=== PATIENT | female | born 1960 | race Caucasian/White ===

== ENCOUNTER 2020-11-27 13:48 | Inpatient (IN) | payer BC ==
[2020-11-27 14:05] LABS: Glucose,Whole Blood 119 mg/dL (75-99)
--- NOTE | 2020-11-27 14:16 | ED ---
General Adult HPI - General Source: patient, RN notes reviewed Mode of arrival: wheelchair Limitations: no limitations <Keaton Rios - Last Filed: 11/27/20 14:07> <Sloan Payne - Last Filed: 11/27/20 16:00> - General Chief complaint: Neuro Symptoms/Deficit Stated complaint: R Arm Tingling Time Seen by Provider: 11/27/20 13:59 - History of Present Illness Initial comments: Patient is a pleasant 58-year-old female presenting to the emergency department with right-sided paresthesias. Onset was 45 minutes ago. Patient denies any weakness. No history of similar symptoms previously. No speech problem is. No confusion. Patient denies any loss of sensation. Area affected is right hand and a little bit of the right foot. (Keaton Rios) - Related Data Allergies Allergy/AdvReac Type Severity Reaction Status Date / Time No Known Allergies Allergy Verified 11/27/20 13:51 Review of Systems ROS Other: All systems not noted in ROS Statement are negative. Constitutional: Denies: fever Eyes: Denies: eye pain ENT: Denies: ear pain Respiratory: Denies: cough Cardiovascular: Denies: chest pain Endocrine: Denies: fatigue Gastrointestinal: Denies: abdominal pain Genitourinary: Denies: dysuria Musculoskeletal: Denies: back pain Skin: Denies: rash Neurological: Reports: paresthesias. Denies: headache, weakness, numbness, confusion, abnormal gait, vertigo <Keaton Rios - Last Filed: 11/27/20 14:07> ROS Other: All systems not noted in ROS Statement are negative. <Sloan Payne - Last Filed: 11/27/20 16:00> ROS Statement: Those systems with pertinent positive or pertinent negative responses have been documented in the HPI. Past Medical History Past Medical History: No Reported History History of Any Multi-Drug Resistant Organisms: None Reported Past Surgical History: Orthopedic Surgery Past Psychological History: No Psychological Hx Reported Smoking Status: Never smoker Past Alcohol Use History: Rare Past Drug Use History: None Reported <Keaton Rios - Last Filed: 11/27/20 14:07> General Exam Limitations: no limitations General appearance: alert, in no apparent distress Head exam: Present: atraumatic, normocephalic Eye exam: Present: normal appearance, PERRL, EOMI. Absent: nystagmus ENT exam: Present: normal oropharynx Neck exam: Present: normal inspection Respiratory exam: Present: normal lung sounds bilaterally Cardiovascular Exam: Present: regular rate, normal rhythm GI/Abdominal exam: Present: soft. Absent: tenderness Extremities exam: Present: normal inspection Neurological exam: Present: alert, oriented X3, CN II-XII intact. Absent: motor sensory deficit Expanded Neurological exam: Present: protecting the airway Patient oriented to: Present: person, place, time Speech: Present: fluid speech Cranial nerves: EOM's Intact: Normal, Facial Sensation: Normal Sensory exam: Upper Extremity Light Touch: Normal, Lower Extremity Light Touch: Normal Motor strength exam: RUE: 5, LUE: 5, RLE: 5, LLE: 5 Eye Response: (4) open spontaneously Motor Response: (6) obeys commands Verbal Response: (5) oriented Psychiatric exam: Present: normal affect, normal mood Skin exam: Present: normal color <Keaton Rios - Last Filed: 11/27/20 14:07> Course <Sloan Payne - Last Filed: 11/27/20 16:00> Vital Signs 11/27/20 13:51 Temperature 98.1 F Pulse Rate 82 Respiratory 16 Rate Blood Pressure 164/101 O2 Sat by Pulse 100 Oximetry - Reevaluation(s) Reevaluation #1: Patient was signed out to me by Dr. Rios. I followed up on the patient's computed tomography scan which was unremarkable. I reevaluated the patient and she does have some sensory loss in the right face arm and leg. Concern that thi s may be acute stroke. The patient is not TPA candidate because she has non- disabling symptoms. As discussed the case with Dr. Cabrera over the phone who recommended admission for stroke workup. Patient will be admitted for further workup. Dr. Cabrera see the patient in the emergency department. 11/27/20 15:59 (Sloan Payne) EKG Findings - EKG Comments: EKG Findings:: Normal sinus rhythm with rate of 80. VT 174. QRS 70. QT 36. QTc 445. Left axis. Fabian QRS. No acute ST change. <Keaton Rios - Last Filed: 11/27/20 14:07> Medical Decision Making - Lab Data Result diagrams: 11/27/20 14:07 11/27/20 14:07 <Sloan Payne - Last Filed: 11/27/20 16:00> - Lab Data Lab Results 11/27/20 11/27/20 11/27/20 Range/Units 14:03 14:07 14:07 WBC 7.2 (3.8-10.6) k/uL RBC 5.84 H (3.80-5.40) m/uL Hgb 16.3 H (11.4-16.0) gm/dL Hct 49.2 H (34.0-46.0) % MCV 84.3 (80.0-100.0) fL MCH 28.0 (25.0-35.0) pg MCHC 33.2 (31.0-37.0) g/dL RDW 13.5 (11.5-15.5) % Plt Count 200 (150-450) k/uL MPV 6.7 Neutrophils % 70 % Lymphocytes % 22 % Monocytes % 5 % Eosinophils % 2 % Basophils % 1 % Neutrophils # 5.0 (1.3-7.7) k/uL Lymphocytes # 1.6 (1.0-4.8) k/uL Monocytes # 0.4 (0-1.0) k/uL Eosinophils # 0.1 (0-0.7) k/uL Basophils # 0.0 (0-0.2) k/uL PT 9.9 (9.0-12.0) sec INR 0.9 (<1.2) APTT 22.0 (22.0-30.0) sec Sodium (137-145) mmol/L Potassium (3.5-5.1) mmol/L Chloride (98-107) mmol/L Carbon Dioxide (22-30) mmol/L Anion Gap mmol/L BUN (7-17) mg/dL Creatinine (0.52-1.04) mg/dL Est GFR (CKD-EPI)AfAm (>60 ml/min/1.73 sqM) Est GFR (CKD-EPI)NonAf (>60 ml/min/1.73 sqM) Glucose (74-99) mg/dL POC Glucose (mg/dL) 119 H (75-99) mg/dL POC Glu Audiology Director ID [place], Cathleen Calcium (8.4-10.2) mg/dL Total Bilirubin (0.2-1.3) mg/dL AST (14-36) U/L ALT (4-34) U/L Alkaline Phosphatase (38-126) U/L Total Protein (6.3-8.2) g/dL Albumin (3.5-5.0) g/dL 11/27/20 Range/Units 14:07 WBC (3.8-10.6) k/uL RBC (3.80-5.40) m/uL Hgb (11.4-16.0) gm/dL Hct (34.0-46.0) % MCV (80.0-100.0) fL MCH (25.0-35.0) pg MCHC (31.0-37.0) g/dL RDW (11.5-15.5) % Plt Count (150-450) k/uL MPV Neutrophils % % Lymphocytes % % Monocytes % % Eosinophils % % Basophils % % Neutrophils # (1.3-7.7) k/uL Lymphocytes # (1.0-4.8) k/uL Monocytes # (0-1.0) k/uL Eosinophils # (0-0.7) k/uL Basophils # (0-0.2) k/uL PT (9.0-12.0) sec INR (<1.2) APTT (22.0-30.0) sec Sodium 140 (137-145) mmol/L Potassium 4.8 (3.5-5.1) mmol/L Chloride 107 (98-107) mmol/L Carbon Dioxide 22 (22-30) mmol/L Anion Gap 11 mmol/L BUN 18 H (7-17) mg/dL Creatinine 0.80 (0.52-1.04) mg/dL Est GFR (CKD-EPI)AfAm >90 (>60 ml/min/1.73 sqM) Est GFR (CKD-EPI)NonAf 80 (>60 ml/min/1.73 sqM) Glucose 128 H (74-99) mg/dL POC Glucose (mg/dL) (75-99) mg/dL POC Glu Audiology Director ID Calcium 9.4 (8.4-10.2) mg/dL Total Bilirubin 0.6 (0.2-1.3) mg/dL AST 36 (14-36) U/L ALT 24 (4-34) U/L Alkaline Phosphatase 136 H (38-126) U/L Total Protein 7.5 (6.3-8.2) g/dL Albumin 4.5 (3.5-5.0) g/dL Disposition <Keaton Rios - Last Filed: 11/27/20 14:07> <Sloan Payne - Last Filed: 11/27/20 16:00> Clinical Impression: Cerebrovascular accident (CVA) Disposition: ADMITTED IP TO THIS HOSP Condition: Stable Referrals: None,Stated [Primary Care Provider] - 1-2 days
[2020-11-27 14:18] LABS: Basophils % (A) 1 %; Eosinophils # (A) 0.1 k/uL (0-0.7); Eosinophils % (A) 2 %; HCT 49.2 % (34.0-46.0); HGB 16.3 gm/dL (11.4-16.0); Lymphocytes # (A) 1.6 k/uL (1.0-4.8); Lymphocytes % (A) 22 %; MCHC 33.2 g/dL (31.0-37.0); MCV 84.3 fL (80.0-100.0); Mean Platelet Volume 6.7; Monocytes # (A) 0.4 k/uL (0-1.0); Monocytes % (A) 5 %; Neutrophils % (A) 70 %; Platelet Count 200 k/uL (150-450); RBC 5.84 m/uL (3.80-5.40); RDW 13.5 % (11.5-15.5); WBC 7.2 k/uL (3.8-10.6)
[2020-11-27 14:29] LABS: ALT 24 U/L (4-34); AST 36 U/L (14-36); African American GFR (CKD) >90 (>60 ml/min/1.73 sqM); Albumin 4.5 g/dL (3.5-5.0); Alkaline Phosphatase 136 U/L (38-126); Anion Gap 11 mmol/L; Blood Urea Nitrogen 18 mg/dL (7-17); Calcium 9.4 mg/dL (8.4-10.2); Carbon Dioxide 22 mmol/L (22-30); Chloride 107 mmol/L (98-107); Glucose 128 mg/dL (74-99); Non-African American GFR(CKD) 80 (>60 ml/min/1.73 sqM); Potassium 4.8 mmol/L (3.5-5.1); Sodium 140 mmol/L (137-145); Total Bilirubin 0.6 mg/dL (0.2-1.3); Total Protein 7.5 g/dL (6.3-8.2)
[2020-11-27 14:36] LABS: INR 0.9 (<1.2); Prothrombin Time 9.9 sec (9.0-12.0)
--- NOTE | 2020-11-27 15:08 | CT ---
EXAMINATION TYPE: CT brain wo con DATE OF EXAM: 11/27/2020 COMPARISON: None HISTORY: Right hand and foot numbness for [address] DLP: 1094.4 mGycm Automated exposure control for dose reduction was used. Helical imaging through the brain. FINDINGS: Bilateral maxillary sinuses show inflammatory change as does the sphenoid sinus, ethmoid air cells. T here is no hemorrhage or hydrocephalus. Cortical atrophy is mild. Brain density is maintained. IMPRESSION: NO ACUTE ABNORMALITIES EVIDENT.
--- NOTE | 2020-11-27 15:09 | XR ---
EXAMINATION TYPE: XR chest 2V DATE OF EXAM: 11/27/2020 COMPARISON: NONE HISTORY: Altered mental status TECHNIQUE: Frontal and lateral views of the chest are obtained. FINDINGS: There is no focal air space opacity, pleural effusion, or pneumothorax seen. The cardiac silhouette size is within normal limits. The osseous structures are intact. There are overlying leads. Patient is rotated. IMPRESSION: No acute cardiopulmonary process.
[2020-11-27] MEDS ORDERED: ASPIRIN 81 MG PO STA (15:48)
[2020-11-27] MEDS ORDERED: ACETAMINOPHEN TAB 325 MG TAB PO PRN (16:29)
[2020-11-27] MEDS ORDERED: ONDANSETRON 4 MG/2 ML VIAL IVP PRN (16:29)
--- NOTE | 2020-11-27 16:35 | P.HPIM ---
History of Present Illness H&P Date: 11/27/20 Chief Complaint: Right-sided numbness This is a 60-year-old female with no known past medical history that presented to the emergency room with right-sided numbness. Patient said that she was sitting today at 1 and noted some numbness starting in her face going down her right arm and her right lower extremity. Patient initially thought that this would go away if she get up and walk around a little bit that her numbness was persistent and was worse in both right hand and right foot. She then became more concerned and decided to come to the emergency room for further evaluation. The ER, computed tomography scan of the head showed no acute intracranial findings. Her case was discussed with neurology over the phone. She was not a TPA candidate. She'll be admitted to the hospital for further evaluation. Patient was seen and evaluated by me in the ER. She she is still complaining of right-sided paresthesia they did not improve since onset of symptoms. She i nformed me that she did not see her regular physician in over 20 years. She denies any history of hypertension. She is a nonsmoker. She is usually fairly active and is able to ambulate and climb one flight of stairs with no difficulty. No prior history of stroke. Review of Systems Review of system: 14 points review of systems were obtained and were negative except to what were mentioned in the HPI. Past Medical History Past Medical History: No Reported History History of Any Multi-Drug Resistant Organisms: None Reported Past Surgical History: Orthopedic Surgery Past Psychological History: No Psychological Hx Reported Smoking Status: Never smoker Past Alcohol Use History: Rare Past Drug Use History: None Reported Medications and Allergies Home Medications Medication Instructions Recorded Confirmed Type Loratadine [Claritin] 10 mg PO DAILY 11/27/20 11/27/20 History Allergies Allergy/AdvReac Type Severity Reaction Status Date / Time No Known Allergies Allergy Verified 11/27/20 16:02 Physical Exam Vitals: Vital Signs Temp Pulse Resp BP Pulse Ox 11/27/20 16:02 98.7 F 77 18 189/109 97 11/27/20 15:15 75 18 168/101 97 11/27/20 13:51 98.1 F 82 16 164/101 100 Intake and Output 11/27/20 11/27/20 11/27/20 06:59 14:59 22:59 Other: Weight 124.738 kg 126.144 kg General: The patient is awake and alert, in no distress Eye: there is normal conjunctiva bilaterally. Neck: The neck is supple, there is no JVD. Cardiovascular: Normal S1-S2, no S3-S4, no murmurs. Respiratory: Lungs clear to auscultation bilaterally Gastrointestinal: Abdomen is soft, nontender Musculoskeletal: There is no pedal edema. Neurological:. Speech is normal. Skin: Skin is warm and dry Results CBC & Chem 7: 11/27/20 14:07 11/27/20 14:07 Labs: Abnormal Lab Results - Last 24 Hours (Table) 11/27/20 11/27/20 11/27/20 Range/Units 14:03 14:07 14:07 RBC 5.84 H (3.80-5.40) m/uL Hgb 16.3 H (11.4-16.0) gm/dL Hct 49.2 H (34.0-46.0) % BUN 18 H (7-17) mg/dL Glucose 128 H (74-99) mg/dL POC Glucose (mg/dL) 119 H (75-99) mg/dL Alkaline Phosphatase 136 H (38-126) U/L Assessment and Plan Assessment: This is a 60-year-old female with no known past medical history that presented to the emergency room for right-sided body numbness. Patient was evaluated and will be admitted to the hospital for further management of her medical problems noted below 1. Suspected CVA 2. Hypertensive urgency Patient will be admitted on telemetry monitoring. Continue neuro checks per CVA protocol. Computed tomography scan of the brain showed no acute findings. We will obtain CT angiogram of the head and neck and MRI of the brain for further evaluation. Neurology consulted. Patient was started on full dose aspirin in the ER. I would add Lipitor 40 mg daily. Check fasting lipid panel, TSH, and A1c. Obtain echocardiogram with contrast. PT/OT/speech pathology evaluation. Repeat lab work in the morning. Continue gentle IV fluid hydration with normal saline at 75 mL per hour. DVT prophylaxis with subcu Lovenox. Repeat lab work in the morning. Patient was updated about her current clinical condition. All of her questions answered to her satisfaction.
[2020-11-27] MEDS ORDERED: Alteplase PER PHARMACY Stroke 1 EACH MISC MISCELLANE PRN (17:08)
[2020-11-27] MEDS ORDERED: ALTEPLASE 81 MG in EMPTY BAG 1 BAG IV STA (17:10)
[2020-11-27] MEDS ORDERED: ALTEPLASE BOLUS 9 MG in EMPTY SYRINGE 1 SYR IV STA (17:10)
[2020-11-27] MEDS ORDERED: LABETALOL 5 MG/ML VIAL MDV IVP STA (17:14)
[2020-11-27] MEDS: ATORVASTATIN 40 MG TAB PO SCH (17:32)
[2020-11-27] MEDS: SODIUM CHLORIDE 0.9% 1,000 ML IV SCH (17:33)
--- NOTE | 2020-11-27 17:56 | P.CNNES ---
History of Present Illness Consult date: 11/27/20 Requesting physician: Sloan Payne Reason for Consult: Numbness History of Present Illness: Patient is a 60-year-old right-handed female came to the hospital today at 1:48 PM for acute onset of numbness of the right hand, foot and the right cheek. Patient was having lunch with her family, when she complained of numbness of her right hand, right foot and right side of her cheek at 1 PM. Patient was noticing some difficulty with walking and balance. She felt her right foot was numb affecting her balance. Denies any headache problem with the vision, slurred speech or facial droop. As the symptoms persisted, they decided to come to the ER. I saw the patient when she returns back from CTA. Vital signs on arrival blood pressure 164/101, pulse rate 82 temperature 98.1. Most recent blood pressure 189/109. Blood test shows normal WBC, hemoglobin 16.3, platelets 200. PT/PTT normal, Chem-7 normal. Hepatic panel normal. Computed tomography scan of the head is normal. Mild cortical atrophy. EKG shows normal sinus rhythm. Chest x-ray showed no acute cardiopulmonary process. Per ED physician report, her NIH stroke scale was 1, has nondisabling deficit, therefore not a candidate for TPA. Patient has not seen doctor for about 20 years. She has suffered from wrist fracture about 1-1/2 years ago and was noted to have elevated BP, but patient elected not to be treated thereafter. She is not on any medications except loratadine. Does not take any antiplatelet medication. No history of trauma, head or neck injury. Both parents are in 90s, alive and well. No family history of strokes. Never smoked, drinks alcohol very occasionally. I came and saw the patient in the ER. Patient had just returned back from CTA. Patient was complaining of numbness of her right hand, forearm and the right shoulder, right side of the cheek and right foot and distal lower extremity. Patient was noted to have increasing deficits, with current NIH stroke scale of 4, as mentioned below. Discussed with patient and her , who is also a physician about possibility of TPA. As patient is still within the window for TPA, patient and her elected to go for TPA. Risks and benefits were informed including 6% risk of hemorrhage from TPA, which could be fatal, versus 30% better neurological recovery from TPA in 3 to 6 months, as compared to non- TPA recipient. Review of Systems As mentioned above in detail. Denies any chest pain, shortness of breath, wheezing or cough. Denies any problem with the vision. No abdominal pain and nausea vomiting diarrhea. No fever or chills. No trauma. All other review of systems noncontributory.. Past Medical History Past Medical History: No Reported History History of Any Multi-Drug Resistant Organisms: None Reported Past Surgical History: Orthopedic Surgery Past Psychological History: No Psychological Hx Reported Smoking Status: Never smoker Past Alcohol Use History: Rare Past Drug Use History: None Reported Medications and Allergies Home Medications Medication Instructions Recorded Confirmed Type Loratadine [Claritin] 10 mg PO DAILY 11/27/20 11/27/20 History Allergies Allergy/AdvReac Type Severity Reaction Status Date / Time No Known Allergies Allergy Verified 11/27/20 16:02 Physical Examination - Vital Signs Vital Signs: Vital Signs Temp Pulse Resp BP Pulse Ox 11/27/20 16:02 98.7 F 77 18 189/109 97 11/27/20 15:15 75 18 168/101 97 11/27/20 13:51 98.1 F 82 16 164/101 100 Intake and Output 11/27/20 11/27/20 11/27/20 06:59 14:59 22:59 Other: Weight 124.738 kg 126.144 kg Patient is a late middle aged female, in no acute distress. Patient is alert awake oriented to time place and person. Speech and language functions are normal. Attention, concentration and fund of knowledge is adequate. On cranial examination, pupils are round and reacting to light, visual raymond are full on confrontation, extraocular muscles are intact with no nystagmus. Face appears to have mild flattening of the nasolabial fold, although appears symmetric on active testing. Her tongue protrudes to the midline. Palatal elevation and sensation normal, hearing and shoulder shrug normal, facial sensation are perceived on both sides, but patient states appears slightly different on the face on the right side. On muscle strength testing, there is right pronator drift and the strength is normal in arms and legs distally and proximally. Deep tendon reflexes are 1+ in the right upper limb, 2+ in the left upper limb. Knees are 2+, ankles 2 bilaterally. Patient has clear Babinski on the right. Flat versus withdrawal on the left. Sensory to touch is equal with no neglect. Patient does feel different (dull) sensation on the right arm and leg, as compared to the left. Cerebellar function showed moderate ataxia for [id number] testing on the right, normal on the left. [id number] testing was slightly ataxic on the right, whereas normal on the left. Tone and bulk of muscles normal. Gait normal, although patient feels off balance because of right leg numbness. On general examination, there is no carotid bruit or murmur, S1-S2 audible. Abdomen is soft nontender. Chest is clear. Peripheral pulses are present. No edema. Results - Laboratory Findings CBC and BMP: 11/27/20 14:07 11/27/20 14:07 Abnormal Lab Findings: Abnormal Labs 11/27/20 11/27/20 11/27/20 14:03 14:07 14:07 RBC 5.84 H Hgb 16.3 H Hct 49.2 H BUN 18 H Glucose 128 H POC Glucose (mg/dL) 119 H Alkaline Phosphatase 136 H Assessment and Plan Assessment: * Probable acute ischemic stroke manifesting with mild right hemiparesis/sensory deficit. Current NIH stroke scale is 4. Mechanism likely lacunar from small vessel disease. Rule out embolic source. * Hypertension, not treated for at least 1+ year. * Obesity Plan: * Patient has measurable neurological deficits at this time. Although symptoms started at 1 PM, but her NIH stroke scale was still 1 (subjective numbness), until she returned back from CTA when symptoms have progressed. Her current NIH stroke scale is 4. Patient apparently is still within the therapeutic window for TPA. After discussing risks and benefits with patient and her , both of them elected to proceed with TPA. * Post-TPA orders will be followed. * CTA of head and neck report pending. * MRI of the brain evaluate for acute stroke. * Fasting lipid panel, hemoglobin A1c * 2-D echo with bubble study rule out PFO. * Admit to ICU. * Neuro checks as per post-TPA protocol. * Blood pressure management as per post-TPA protocol. Time with Patient: Greater than 30
[2020-11-27] MEDS: SODIUM CHLORIDE 0.9% 50 ML MINI-BAG IV ONE ×2 (17:57→18:15)
--- NOTE | 2020-11-27 17:57 | ED ---
Medical Decision Making - Medical Decision Making This 60-year-old female who presents emergency department for numbness to the right side of her body. Patient was initially evaluated by Dr. Rios who did not note any neurologic findings on examination. When I evaluated the patient around 3:45 PM she did note having some decreased sensation to the right when compared to the left however I did not note any other neurologic findings on my examination. She is able to hold both arms up. She was able to hold both legs. She was able to close her eyes and I did not note any pronator drift and with her eyes closed she was able to take her finger and touch her nose with both hands at the time. The patient was to be admitted for suspected stroke workup. She is not TPA candidate at the time because her NIH was low when she had non- disabling symptoms on examination. After the patient returned from a CTA she was evaluated by neurology who noted that the patient had developed some significant ataxia. The patient was still within the TPA window and this was discussed with the family. They're agreeable to receiving TPA and the patient received TPA. I spoke with Dr. Schumacher are because the patient will be going to ICU and he was updated on the plan of care. Dr. Rivera was also in the ER and I discussed the patient's plan of care with him as well. Patient family or us also updated as well. - Lab Data Result diagrams: 11/27/20 14:07 11/27/20 14:07 Lab Results 11/27/20 11/27/20 11/27/20 Range/Units 14:03 14:07 14:07 WBC 7.2 (3.8-10.6) k/uL RBC 5.84 H (3.80-5.40) m/uL Hgb 16.3 H (11.4-16.0) gm/dL Hct 49.2 H (34.0-46.0) % MCV 84.3 (80.0-100.0) fL MCH 28.0 (25.0-35.0) pg MCHC 33.2 (31.0-37.0) g/dL RDW 13.5 (11.5-15.5) % Plt Count 200 (150-450) k/uL MPV 6.7 Neutrophils % 70 % Lymphocytes % 22 % Monocytes % 5 % Eosinophils % 2 % Basophils % 1 % Neutrophils # 5.0 (1.3-7.7) k/uL Lymphocytes # 1.6 (1.0-4.8) k/uL Monocytes # 0.4 (0-1.0) k/uL Eosinophils # 0.1 (0-0.7) k/uL Basophils # 0.0 (0-0.2) k/uL PT 9.9 (9.0-12.0) sec INR 0.9 (<1.2) APTT 22.0 (22.0-30.0) sec Sodium (137-145) mmol/L Potassium (3.5-5.1) mmol/L Chloride (98-107) mmol/L Carbon Dioxide (22-30) mmol/L Anion Gap mmol/L BUN (7-17) mg/dL Creatinine (0.52-1.04) mg/dL Est GFR (CKD-EPI)AfAm (>60 ml/min/1.73 sqM) Est GFR (CKD-EPI)NonAf (>60 ml/min/1.73 sqM) Glucose (74-99) mg/dL POC Glucose (mg/dL) 119 H (75-99) mg/dL POC Glu Mri Ct Tech ID [place], Cathleen Calcium (8.4-10.2) mg/dL Total Bilirubin (0.2-1.3) mg/dL AST (14-36) U/L ALT (4-34) U/L Alkaline Phosphatase (38-126) U/L Total Protein (6.3-8.2) g/dL Albumin (3.5-5.0) g/dL TSH (0.465-4.680) mIU/L 11/27/20 11/27/20 Range/Units 14:07 14:07 WBC (3.8-10.6) k/uL RBC (3.80-5.40) m/uL Hgb (11.4-16.0) gm/dL Hct (34.0-46.0) % MCV (80.0-100.0) fL MCH (25.0-35.0) pg MCHC (31.0-37.0) g/dL RDW (11.5-15.5) % Plt Count (150-450) k/uL MPV Neutrophils % % Lymphocytes % % Monocytes % % Eosinophils % % Basophils % % Neutrophils # (1.3-7.7) k/uL Lymphocytes # (1.0-4.8) k/uL Monocytes # (0-1.0) k/uL Eosinophils # (0-0.7) k/uL Basophils # (0-0.2) k/uL PT (9.0-12.0) sec INR (<1.2) APTT (22.0-30.0) sec Sodium 140 (137-145) mmol/L Potassium 4.8 (3.5-5.1) mmol/L Chloride 107 (98-107) mmol/L Carbon Dioxide 22 (22-30) mmol/L Anion Gap 11 mmol/L BUN 18 H (7-17) mg/dL Creatinine 0.80 (0.52-1.04) mg/dL Est GFR (CKD-EPI)AfAm >90 (>60 ml/min/1.73 sqM) Est GFR (CKD-EPI)NonAf 80 (>60 ml/min/1.73 sqM) Glucose 128 H (74-99) mg/dL POC Glucose (mg/dL) (75-99) mg/dL POC Glu Mri Ct Tech ID Calcium 9.4 (8.4-10.2) mg/dL Total Bilirubin 0.6 (0.2-1.3) mg/dL AST 36 (14-36) U/L ALT 24 (4-34) U/L Alkaline Phosphatase 136 H (38-126) U/L Total Protein 7.5 (6.3-8.2) g/dL Albumin 4.5 (3.5-5.0) g/dL TSH 1.830 (0.465-4.680) mIU/L Disposition Clinical Impression: Cerebrovascular accident (CVA) Disposition: ADMITTED IP TO THIS HOSP Condition: Stable
[2020-11-27 18:07] LABS: Glucose,Whole Blood 140 mg/dL (75-99)
[2020-11-27] MEDS ORDERED: SODIUM CHLORIDE 0.9% 50 ML MINI-BAG IV ONE (18:11)
[2020-11-27] MEDS: CLEVIDIPINE BUTYRATE 25 MG in EMPTY BAG 1 BAG IV SCH (19:00)
[2020-11-27 19:01] LABS: HCT 47.5 % (34.0-46.0); HGB 15.4 gm/dL (11.4-16.0); MCH 27.5 pg (25.0-35.0); MCHC 32.3 g/dL (31.0-37.0); MCV 85.2 fL (80.0-100.0); Mean Platelet Volume 6.8; Platelet Count 206 k/uL (150-450); RBC 5.58 m/uL (3.80-5.40); RDW 14.1 % (11.5-15.5); WBC 10.5 k/uL (3.8-10.6)
[2020-11-27] MEDS: OXYMETAZOLINE 0.05% NASL SPRAY 1 SPRAY BOTTLE NASAL SCH (19:18)
--- NOTE | 2020-11-27 21:41 | PCN ---
PROCEDURE NOTE PREOPERATIVE DIAGNOSIS: Right anterior epistaxis. POSTOP DIAGNOSIS: Right anterior epistaxis. PROCEDURE PERFORMED: Silver nitrate cauterization, right anterior septum. ANESTHESIA: Topical lidocaine. BLOOD LOSS: Minimal. Less than 2 mL. COMPLICATIONS: None. PROCEDURE DETAILS: The patient in her hospital bed. Silver nitrate cauterization used to control the bleeding on the right anterior septum and this was applied twice and controlled the bleeding. The patient tolerated this well with no complications. MMODL / IJN: [id number] /
--- NOTE | 2020-11-27 21:41 | CONS ---
CONSULTATION REASON FOR CONSULTATION: Epistaxis. HISTORY OF PRESENT ILLNESS: This is a 60 white female who presented to the ER this afternoon with acute onset of right-sided numbness. She had no weakness, however. This affects her right hand and right foot as well as a little bit of the right side of the face. She had a negative CT, but there was concern of a CVA and therefore tPA was administered. Shortly after the tPA was administered, the patient started having epistaxis. It was uncertain as to which side, but it was felt more so on the right than the left. She has not had epistaxis previously and noted has no chronic nasal symptoms. She had epistaxis, which has improved with Afrin, however, still has some mild epistaxis, especially on the right. Note that the CT of the brain did show some chronic sinus inflammation. PAST MEDICAL HISTORY: Negative for heart, lung, liver, kidney disease, diabetes mellitus, seizure disorder, bleeding. SURGICAL HISTORY: Post orthopedic surgery. SOCIAL HISTORY: Does not smoke. Drinks alcohol rarely. MEDICATIONS: At home, Claritin. ALLERGIES: No known drug allergies. REVIEW OF SYSTEMS: 14-point review of systems obtained, negative except what was mentioned already. PHYSICAL EXAM: Vital signs shows the patient is afebrile. Earlier this afternoon her blood pressure was elevated, especially diastolic over 100. GENERAL: Well-developed adult white female in no acute distress. She is conversant, awake, alert, and oriented x3. HEENT: Head normocephalic, atraumatic. Ears bilaterally clear. Canals clear. TMs unremarkable mobile. Nose shows cotton in the right nasal cavity with a nasal clamp in place. There is no bleeding through this. This was removed. Prominent vessel left anterior septum, however, no acute bleeding. On the right, there is a prominent vessel and superiorly there was some active bleeding. This was controlled with silver nitrate. The septum has minimal spurring. No bleeding points otherwise. Oropharynx shows no blood. No posterior bleeding. No lesions. NECK: Supple without adenopathy or tenderness. ASSESSMENT: Right anterior epistaxis, acute, currently controlled. PLAN: No nose blowing for 1 week with nasal saline and moisturization. If she has breakthrough bleeding, then I have left a verbal order to use Afrin and the nose nasal clamp and I reviewed this with the patient's nurse. At this point, the patient is doing well. She will follow up as needed as an outpatient. She does live out of town and can follow up with any recurrent epistaxis back in her hometown also. If there are questions or concerns, please free to contact me. MMODL / IJN: [id number] /
--- NOTE | 2020-11-27 22:33 | CT ---
EXAMINATION TYPE: CT angio head neck DATE OF EXAM: 11/27/2020 COMPARISON: None HISTORY: Weakness CT DLP: mGycm Automated exposure control for dose reduction was used. CONTRAST: Performed , patient injected with mL of . The contrast was Isovue 65 mL. There are 3-D post processed images. Images obtained from the aortic arch to the vertex of the brain with IV contrast. There is normal branching pattern of the great vessels on the aortic arch. There is arterial flow in both subclavian arteries. There is arterial flow in the common internal and external carotid arteries bilaterally. There is arterial flow in both vertebral arteries. There is no evidence of carotid or v ertebral artery aneurysm or dissection. There is wide patency of the carotid artery bifurcations. The re is arterial flow in the vertebrobasilar artery system. There is extensive mucosal thickening in the sphenoid ethmoid frontal and maxillary sinuses. There is arterial flow in the anterior middle and posterior cerebral arteries. I see no mass effect. There is no sign of intracranial aneurysm or neovascularity. There is normal enhancement of the venou s sinuses. There is diminutive A2 segment of the left anterior cerebral artery. I do not see any foca l stenosis. IMPRESSION: Negative CT angiogram of the neck. There is diminutive left anterior cerebral artery but no focal stenosis. Clinical significance is not clear. This could be developmental. Otherwise negative CT angiogram of the brain.
[2020-11-28 01:35] LABS: Hemoglobin A1C 6.2 % (4.0-6.0)
[2020-11-28 03:53] LABS: Basophils # (A) 0.1 k/uL (0-0.2); Basophils % (A) 1 %; Eosinophils # (A) 0.1 k/uL (0-0.7); Eosinophils % (A) 1 %; HCT 46.3 % (34.0-46.0); HGB 14.8 gm/dL (11.4-16.0); Lymphocytes # (A) 1.5 k/uL (1.0-4.8); Lymphocytes % (A) 20 %; MCH 27.8 pg (25.0-35.0); MCV 86.9 fL (80.0-100.0); Mean Platelet Volume 6.9; Monocytes # (A) 0.3 k/uL (0-1.0); Monocytes % (A) 5 %; Neutrophils # (A) 5.3 k/uL (1.3-7.7); Neutrophils % (A) 71 %; Platelet Count 176 k/uL (150-450); RBC 5.33 m/uL (3.80-5.40); WBC 7.5 k/uL (3.8-10.6)
[2020-11-28 04:16] LABS: African American GFR (CKD) >90 (>60 ml/min/1.73 sqM); Anion Gap 10 mmol/L; Blood Urea Nitrogen 19 mg/dL (7-17); Calcium 8.9 mg/dL (8.4-10.2); Carbon Dioxide 24 mmol/L (22-30); Chloride 106 mmol/L (98-107); Glucose 112 mg/dL (74-99); Non-African American GFR(CKD) >90 (>60 ml/min/1.73 sqM); Potassium 4.7 mmol/L (3.5-5.1); Sodium 140 mmol/L (137-145)
[2020-11-28] MEDS: OXYMETAZOLINE 0.05% NASL SPRAY 1 SPRAY BOTTLE NASAL SCH ×2 (04:53→10:02)
[2020-11-28] MEDS: CLEVIDIPINE BUTYRATE 25 MG in EMPTY BAG 1 BAG IV SCH (08:55)
[2020-11-28] MEDS ORDERED: ASPIRIN 325 MG TAB PO SCH (09:00)
[2020-11-28] MEDS ORDERED: ENOXAPARIN 40 MG/0.4 ML SYRINGE SQ SCH (09:00)
--- NOTE | 2020-11-28 09:13 | P.PN ---
Subjective Progress Note Date: 11/28/20 After patient was seen yesterday, TPA was initiated. Right after the one hour infusion of alteplase completed, patient developed epistaxis. It was profuse bleeding. ENT was consulted, who performed a nasal camp and also cauterized a bleeding vessel in the right nostril. Finally epistaxis resolved. She also developed mild vaginal bleed. Her hemoglobin remained stable. Vitals remained stable. Her blood pressure was controlled with Cleviprex. This was finally discontinued once the epistaxis resolved. Her most recent vitals are blood pressure 179/90, pulse rate 71. Patient continues to have subjective numbness on the right side. Patient believes that she is less sensitive on the right as compared to yesterday. Denies any slurred speech. Still with ataxia on the right. No other symptoms. Patient also has received an aspirin 324 mg in the ER prior to initiation of TPA. Uncertain if epistaxis was from TPA or aspirin. Objective - Vital Signs Vital signs: Vital Signs Temp 98.3 F 11/28/20 04:00 Pulse 71 11/28/20 07:00 Resp 14 11/28/20 07:00 BP 179/90 11/28/20 07:00 Pulse Ox 97 11/28/20 07:00 Intake & Output 11/27/20 11/28/20 11/28/20 18:59 06:59 18:59 Intake Total 125 849.134 78.167 Output Total 400 500 Balance 125 449.134 -421.833 Weight 128.2 kg 125.8 kg Intake: IV 125 825 75 0.9 Sodium Chloride 50 Sodium Chloride 0.9% 1, 75 825 75 000 ml @ 75 mls/hr IV . [id number] TONNY Rx#:[id number] Intake, IV Titration 24.134 3.167 Amount Clevidipine Butyrate 25 24.134 3.167 mg In Empty Bag 1 bag @ 1 MG/HR 2 mls/hr IV .Q24H TONNY Rx#:[id number] Output: Urine 400 500 Other: Voiding Method Bedpan Bedpan # Voids 0 1 - Exam Patient is a late middle aged female, in no acute distress. Patient is alert awake oriented to time place and person. Speech and language functions are normal. Attention, concentration and fund of knowledge is adequate. On cranial examination, pupils are round and reacting to light, visual raymond are full on confrontation, extraocular muscles are intact with no nystagmus. Face is symmetric, tongue protrudes to the midline. Palatal elevation and sensation normal, hearing and shoulder shrug normal, facial sensation normal. Shoulder shrug normal. On muscle strength testing, there is right pronator drift, improved as compared to yesterday and the strength is normal in arms and legs distally and prox imally. Deep tendon reflexes are 1+ to 2+ and plantar is up on the right. Sensory to touch and temperature is equal with no neglect. She only notices numbness and she scratches her right hand with her left index finger nail. Cerebellar function showed moderate ataxia for vezlmq-eo-jmxq testing only on the right. No dysdiadochokinesia. No ataxia for ncra-xy-jtgu testing. Tone and bulk of muscles normal. Gait not checked. On general examination, there is no carotid bruit or murmur, S1-S2 audible. Abdomen is soft nontender. Chest is clear. Peripheral pulses are present. No edema. - Labs CBC & Chem 7: 11/28/20 03:02 11/28/20 03:02 Labs: Abnormal Lab Results - Last 24 Hours (Table) 11/27/20 11/27/20 11/27/20 Range/Units 14:03 14:07 14:07 RBC 5.84 H (3.80-5.40) m/uL Hgb 16.3 H (11.4-16.0) gm/dL Hct 49.2 H (34.0-46.0) % BUN 18 H (7-17) mg/dL Glucose 128 H (74-99) mg/dL POC Glucose (mg/dL) 119 H (75-99) mg/dL Hemoglobin A1c (4.0-6.0) % Alkaline Phosphatase 136 H (38-126) U/L 11/27/20 11/27/20 11/27/20 Range/Units 14:07 18:04 18:52 RBC 5.58 H (3.80-5.40) m/uL Hgb (11.4-16.0) gm/dL Hct 47.5 H (34.0-46.0) % BUN (7-17) mg/dL Glucose (74-99) mg/dL POC Glucose (mg/dL) 140 H (75-99) mg/dL Hemoglobin A1c 6.2 H (4.0-6.0) % Alkaline Phosphatase (38-126) U/L 11/28/20 11/28/20 Range/Units 03:02 03:02 RBC (3.80-5.40) m/uL Hgb (11.4-16.0) gm/dL Hct 46.3 H (34.0-46.0) % BUN 19 H (7-17) mg/dL Glucose 112 H (74-99) mg/dL POC Glucose (mg/dL) (75-99) mg/dL Hemoglobin A1c (4.0-6.0) % Alkaline Phosphatase (38-126) U/L Assessment and Plan Assessment: * Probable acute ischemic stroke manifesting with mild right hemiparesis/sensory deficit. Current NIH stroke scale is 2. Mechanism likely lacunar from small vessel disease. Rule out embolic source. * Hypertension, not treated for at least 1+ year. * Obesity * Status post epistaxis post TPA, now resolved. * Mild vaginal bleed, post-TPA, resolved Plan: * Patient has received TPA. Her neurological examination appears to have slightly improved, but still has focal deficits. Await MRI. * Epistaxis has resolved. Appreciate ENT input. * CTA of head revealed diminutive left anterior cerebral artery but no focal stenosis. Clinical significance is not clear. This could be developmental. CTA of the neck is normal. * MRI of the brain pending, evaluate for acute stroke. * Fasting lipid panel pending, * Hemoglobin A1c 6.2. Patient will need dietary modification for prediabetes. * 2-D echo with bubble study rule out PFO. Pending * Neuro checks every 2 hours for 24 hours post-TPA. * Blood pressure management as per post-TPA protocol. * Patient on SCDs for DVT prophylaxis. Patient was reevaluated at 11:15 AM. Continues to have significant ataxia for hchwyi-ps-yerg, minimally for ytlt-lg-ahmi on the right. Still with significant right pronator drift (worse as compared to earlier this morning). Blood pressure was 145/81. We will stop Cleviprex Maintain blood pressure higher, only treat if greater than 185/110. 2-D echo showed normal left-ventricular size. Moderate concentric LVH. EF is between 60-65%. Agitated saline documented no interatrial shunt. No PFO. Lipid panel with cholesterol 174, LDL 105, HDL 39, triglycerides 150. Agree with Lipitor 40 mg daily. PT, OT and speech therapy. 3:15 PM MRI report came back. Confirmed evidence of lacunar stroke involving the left thalamus. Discussed MRI results with the patient and her . Reviewed films. According to nurse report, patient did have some mild fresh blood noted when she went for MRI. I would recommend Plavix 75 mg and aspirin 81 mg if cleared from epistaxis standpoint. If single agent is recommended by ENT, then would consider aspirin 325 mg or 81 mg. Time with Patient: Greater than 30
--- NOTE | 2020-11-28 09:30 | ECHOF ---
Referral Reason:CVA MEASUREMENTS -------- HEIGHT: 167.6 cm WEIGHT: 125.7 kg BP: 178/89 IVSd: 1.4 cm (0.6 - 1.1) LVIDd: 4.7 cm (3.9 - 5.3) LVPWd: 1.3 cm (0.6 - 1.1) EDV(Teich): 101 ml IVSs: 1.7 cm LVIDs: 3.2 cm LVPWs: 2.1 cm %IVS Thck: 18 % ESV(Teich): 41 ml EF(Teich): 59 % %FS: 31 % SV(Teich): 60 ml LA Diam: 3.5 cm (2.7 - 3.8) RVIDd: 2.7 cm (< 3.3) Ao Diam: 3.0 cm (2.0 - 3.7) AV Cusp: 1.8 cm (1.5 - 2.6) EPSS: 0.7 cm MV E Pietro: 0.98 m/s MV DecT: 179 ms MV Dec Wasco: 5.4 m/s MV A Pietro: 1.05 m/s MV E/A Ratio: 0.93 MV PHT: 52 ms AV Vmax: 1.69 m/s AV maxP.42 mmHg MV EF SLOPE: 47.02 mm/s (70 - 150) MV EXCURSION: 13.99 mm (> 18.000) FINDINGS -------- Sinus rhythm. This was a technically adequate study. The left ventricular size is normal. There is moderate concentric left ventricular hypertrophy. O verall left ventricular systolic function is normal with, an EF between 60 - 65 %. The right ventricle is normal in size. The left atrium is normal in size. The right atrium is normal in size. Contrast study was performed with 2 iv injections of 8 ccs of agitated normal saline, at rest, and wi th cough. Saline bubble study negative. No PFO NOTED The aortic valve is trileaflet, and appears structurally normal. No aortic stenosis or regurgitation. The mitral valve is normal. The tricuspid valve appears structurally normal. Unable to estimate RVSP due to inadequate TR jet s pectral doppler profile. The pulmonic valve was not well visualized. The aortic root size is normal. Normal inferior vena cava with normal inspiratory collapse consistent with estimated right atrial pre ssure of 5 mmHg. Echo free space indicative of a pericardial fat pad. There is no pericardial effusion. CONCLUSIONS -------- 1. The left ventricular size is normal. 2. There is moderate concentric left ventricular hypertrophy. 3. Overall left ventricular systolic function is normal with, an EF between 60 - 65 %. 4. Contrast study was performed with 2 iv injections of 8 ccs of agitated normal saline, at rest, and with cough. 5. Saline bubble study negative. No PFO NOTED 6. The aortic valve is trileaflet, and appears structurally normal. No aortic stenosis or regurgitati on. 7. Echo free space indicative of a pericardial fat pad. 8. There is no pericardial effusion. INTERLOCKING P[employer]EMENT INSTALLER: Jennifer Blackman RDCS
[2020-11-28] MEDS: SODIUM CHLORIDE 0.9% 1,000 ML IV SCH ×2 (10:01→21:26)
[2020-11-28] MEDS: amLODIPine 5 MG TAB PO SCH ×2 (10:02→21:25)
[2020-11-28] MEDS: ATORVASTATIN 40 MG TAB PO SCH (10:02)
[2020-11-28 12:52] LABS: Chol/HDL Ratio 4.46; Cholesterol 174 mg/dL (0-200)
--- NOTE | 2020-11-28 13:11 | P.CNPUL ---
History of Present Illness Consult date: 11/28/20 Requesting physician: Bimal Timmons Reason for consult: other (Acute CVA) Chief complaint: Right-sided numbness. History of present illness: This is a 60-year-old female, no significant past medical history. Patient lives in [place]. Has not been seen by any physician for over a decade. Yesterday around 1:00 PM, patient developed sudden onset of numbness in the right hand foot and the right cheek. She was eating lunch with her family, patient also noticed difficulty with walking and balance. Right foot was felt to be numb. Patient has no headache, no blurred vision, no slurred speech, no facial droop, patient was brought into the ER, blood pressure was noted to be elevated at 189/109. CT of the brain was normal. EKG was normal. Chest x-ray was also normal. Most of her labs were unremarkable. Patient was seen by neurology on consultation shortly after her presentation, and the patient was in the ER at the time. Upon examination by neurology, the patient was noted to have increasing deficit with NIH stroke scale of 4. Hence he recommended TPA. Patient received TPA since she was in the window for thrombolytics. And the patient was transferred shortly after to the ICU. Upon arrival to the ICU, patient developed epistaxis requiring ENT consultation and cauterization. Patient also developed minimal vaginal bleeding. Her symptoms are basically about the same, continues to have numbness on the right side, MRI is pending today. Seen by neurology again today, still documenting numbness on the right side, and some ataxia on the right side. But no other findings. Patient was felt to have acute ischemic stroke manifesting with mild right hemiparesis and sensory deficit. Her NIH stroke scale is 2 today. 2-D echo with bubble study is pending. CT angiography of head and neck is negative. Labs today including CBC, basic metabolic profile, are normal. Review of Systems Constitutional: Negative. HEENT: Negative. Except for epistaxis shortly after receiving TPA. Pulmonary: Negative. Cardiac: Negative. GI: Negative. Genitourinary: Negative except for vaginal bleeding post TPA. Musculoskeletal: As noted in HPI. Neurologic: As noted in HPI. Psychiatric: Negative. Hematologic: Negative and as noted in HPI. Skin: Negative. Endocrine: Negative. Past Medical History Past Medical History: No Reported History History of Any Multi-Drug Resistant Organisms: None Reported Past Surgical History: Orthopedic Surgery Additional Past Surgical History / Comment(s): left wrist sugery. D&C Past Anesthesia/Blood Transfusion Reactions: No Reported Reaction Past Psychological History: No Psychological Hx Reported Smoking Status: Never smoker Past Alcohol Use History: Rare Past Drug Use History: None Reported - Past Family History Mother Family Medical History: Cancer Additional Family Medical History / Comment(s): A & W; breast cancer Father Additional Family Medical History / Comment(s): A & W; pacemaker, melanoma Medications and Allergies Home Medications Medication Instructions Recorded Confirmed Type Loratadine [Claritin] 10 mg PO DAILY 11/27/20 11/27/20 History Allergies Allergy/AdvReac Type Severity Reaction Status Date / Time No Known Allergies Allergy Verified 11/27/20 16:02 Physical Exam Vitals: Vital Signs Temp Pulse Resp BP Pulse Ox 11/28/20 12:00 70 13 148/73 97 11/28/20 11:30 70 16 156/79 96 11/28/20 11:15 77 17 145/81 97 11/28/20 11:00 67 14 158/83 95 11/28/20 10:45 71 14 149/80 96 11/28/20 10:30 71 15 166/81 96 11/28/20 10:15 76 19 161/77 97 11/28/20 10:00 76 25 H 131/79 97 11/28/20 09:45 76 15 160/88 96 11/28/20 09:30 77 16 161/86 97 11/28/20 09:15 73 20 166/85 98 11/28/20 09:00 68 15 158/89 98 11/28/20 08:45 71 16 168/77 11/28/20 08:30 71 16 159/87 11/28/20 08:15 98.3 F 67 13 185/90 96 11/28/20 08:00 74 16 185/90 96 11/28/20 07:00 71 14 179/90 97 11/28/20 06:30 68 13 178/89 96 11/28/20 06:00 70 14 95 11/28/20 05:30 62 13 93 L 11/28/20 05:00 62 14 153/85 93 L 11/28/20 04:30 62 15 94 L 11/28/20 04:00 98.3 F 62 14 94 L 11/28/20 03:30 64 13 95 11/28/20 03:00 61 14 140/71 96 11/28/20 02:30 60 15 150/69 92 L 11/28/20 02:00 69 14 150/81 94 L 11/28/20 01:30 66 16 160/82 96 11/28/20 01:00 55 L 13 136/69 94 L 11/28/20 00:30 57 L 12 130/71 94 L 11/28/20 00:00 97.9 F 63 11 L 122/65 95 11/27/20 23:49 13 11/27/20 23:30 60 13 118/61 11/27/20 23:00 64 13 127/66 11/27/20 22:45 68 14 124/77 11/27/20 22:30 71 15 135/70 11/27/20 22:15 74 15 147/92 93 L 11/27/20 22:00 80 17 138/63 94 L 11/27/20 21:45 81 22 118/66 93 L 11/27/20 21:30 63 14 129/61 92 L 11/27/20 21:15 64 14 128/67 92 L 11/27/20 21:00 67 11 L 133/63 91 L 11/27/20 20:45 72 14 143/67 93 L 11/27/20 20:30 73 15 152/74 93 L 11/27/20 20:15 75 22 141/73 94 L 11/27/20 20:00 98 F 77 20 152/84 92 L 11/27/20 19:45 73 14 150/80 94 L 11/27/20 19:30 75 16 164/77 93 L 11/27/20 19:20 75 13 164/77 94 L 11/27/20 19:15 75 11 L 164/77 94 L 11/27/20 19:10 76 14 153/78 93 L 11/27/20 19:05 75 19 170/86 95 11/27/20 19:00 73 9 L 153/78 95 11/27/20 18:45 78 11 L 177/90 95 11/27/20 18:35 85 24 141/88 94 L 11/27/20 18:30 72 8 L 177/108 94 L 07/13/21 18:20 17 11/27/20 18:15 98.3 F 75 13 159/89 95 11/27/20 18:04 80 18 11/27/20 17:47 79 18 167/91 98 11/27/20 17:32 79 18 176/94 98 11/27/20 17:17 76 18 163/93 98 11/27/20 16:02 98.7 F 77 18 189/109 97 11/27/20 15:15 75 18 168/101 97 11/27/20 13:51 98.1 F 82 16 164/101 100 Intake and Output 11/27/20 11/28/20 11/28/20 22:59 06:59 14:59 Intake Total 353.267 620.867 506.167 Output Total 0 400 1000 Balance 353.267 220.867 -493.833 Intake: IV 350 600 300 0.9 Sodium Chloride 50 Sodium Chloride 0.9% 1, 300 600 300 000 ml @ 25 mls/hr IV . Q24H TONNY Rx#:[id number] Intake, IV Titration 3.267 20.867 6.167 Amount Clevidipine Butyrate 25 3.267 20.867 6.167 mg In Empty Bag 1 bag @ 1 MG/HR 2 mls/hr IV .Q24H TONNY Rx#:[id number] Oral 200 Output: Urine 0 400 1000 Other: Voiding Method Bedpan Bedpan Bedside Commode # Voids 0 0 1 Weight 128.2 kg 125.8 kg Physical Exam: Revealed a 60-year-old female in no distress. Head: Atraumatic, normocephalic. HEENT:[Neck is supple.] [No neck masses.] [No thyromegaly.] [No JVD.] Chest: [Clear throughout, no crackles, no rhonchi, no wheezes.] Cardiac Exam: [Normal S1 and S2, no S3 gallop, no murmur.] Abdomen: [Soft, nontender, no megaly, no rebound, no guarding, normal bowel sounds.] Extremities: [No clubbing, no edema, no cyanosis.] Psychiatric: Normal mood, affect and normal mental status examination. Neurological Exam: Alert and oriented 3. Face is symmetric. No evidence of facial droop. Minimal right pronator drift is noted.Cerebellar function showed moderate ataxia for patxar-nv-knus testing only on the right Skin: No rashes. Results - Laboratory Findings CBC and BMP: 11/28/20 03:02 11/28/20 03:02 PT/INR, D-dimer PT 9.9 sec (9.0-12.0) 11/27/20 14:07 INR 0.9 (<1.2) 11/27/20 14:07 Abnormal lab findings: Abnormal Labs 11/27/20 11/27/20 11/27/20 14:03 14:07 14:07 RBC 5.84 H Hgb 16.3 H Hct 49.2 H BUN 18 H Glucose 128 H POC Glucose (mg/dL) 119 H Hemoglobin A1c Alkaline Phosphatase 136 H Triglycerides HDL Cholesterol 11/27/20 11/27/20 11/27/20 14:07 18:04 18:52 RBC 5.58 H Hgb Hct 47.5 H BUN Glucose POC Glucose (mg/dL) 140 H Hemoglobin A1c 6.2 H Alkaline Phosphatase Triglycerides HDL Cholesterol 11/28/20 11/28/20 03:02 03:02 RBC Hgb Hct 46.3 H BUN 19 H Glucose 112 H POC Glucose (mg/dL) Hemoglobin A1c Alkaline Phosphatase Triglycerides 150.0 H HDL Cholesterol 39.0 L - Diagnostic Findings Additional studies: Chest x-ray was unremarkable. I reviewed the chest x-ray myself. Brain CT was also unremarkable, and angiography of the head and neck is negative Assessment and Plan Assessment: Impression: Acute CVA, ischemic in nature, status post TPA Hypertensive urgency, patient required placement on clevidipine , presently will start the patient on Norvasc 5 mg twice a day. Post TPA epistaxes, unexpected. Resolved Post TPA vaginal bleeding unexpected, resolved Recommendation: Continue to monitor the patient in the ICU until her MRI is performed Continue Norvasc and adjust dose based on blood pressure response. Continue aspirin. May or may not require more anticoagulation therapy based on MRI, and that'll be decided upon by neurology on the case. We'll continue to follow while in the ICU. Time with Patient: Greater than 30
--- NOTE | 2020-11-28 14:57 | MR ---
EXAMINATION TYPE: MR brain wo con DATE OF EXAM: 11/28/2020 2:46 PM COMPARISON: CT 11/27/2020 HISTORY: Right hand and foot numbness, evaluate for CVA. FINDINGS: The ventricles, basal cisterns and sulci overlying the cerebral convexities are mildly enlarged. There is evidence of mild periventricular white matter ischemic demyelination. Remote deep white matter insults are also noted. Diffusion-weighted imaging demonstrates a small focus of increased signal within the left thalamus me asuring 8.5 mm compatible with acute vascular insult in this region. No cortical insult is seen at th is time. There is no evidence for midline shift or mass effect. Acute intracranial hemorrhage or extra-axial collection is not evident. The paranasal sinuses and mastoid air cells are well-aerated. IMPRESSION: 1. Small focus of acute vascular insult in the region of the left thalamus measuring 8.5 mm. No addit ional areas of acute edema are seen on diffusion weighted imaging. 2. Age-related atrophic and chronic small vessel ischemic change.
[2020-11-28 15:24] VITALS: BMI 44.7
--- NOTE | 2020-11-28 16:01 | P.PN ---
Subjective Progress Note Date: 11/28/20 Patient was seen and evaluated by me this morning. She was sleepy but woke up immediately. Her is at bedside. Patient is still complaining of similar symptoms compared to yesterday with right-sided numbness involving both her arm and right lower extremity. Patient had TPA yesterday and subsequently suffered from severe epistaxis and some vaginal bleeding that eventually resolved. Her hemoglobin remained stable. She is currently not having any bleeding at this time. She denies any headache or lightheadedness. Objective - Vital Signs Vital signs: Vital Signs Temp 98.3 F 11/28/20 08:15 Pulse 70 11/28/20 12:00 Resp 13 11/28/20 12:00 BP 148/73 11/28/20 12:00 Pulse Ox 97 11/28/20 12:00 Intake & Output 11/27/20 11/28/20 11/28/20 18:59 06:59 18:59 Intake Total 125 849.134 506.167 Output Total 400 1000 Balance 125 449.134 -493.833 Weight 128.2 kg 125.8 kg 125.8 kg Intake: IV 125 825 300 0.9 Sodium Chloride 50 Sodium Chloride 0.9% 1, 75 825 300 000 ml @ 25 mls/hr IV . Q24H [facility] Rx#:[id number] Intake, IV Titration 24.134 6.167 Amount Clevidipine Butyrate 25 24.134 6.167 mg In Empty Bag 1 bag @ 1 MG/HR 2 mls/hr IV .Q24H [facility] Rx#:[id number] Oral 200 Output: Urine 400 1000 Other: Voiding Method Bedpan Bedpan Bedside Commode # Voids 0 1 - Exam General: The patient is awake and alert, in no distress Eye: there is normal conjunctiva bilaterally. Neck: The neck is supple, there is no JVD. Cardiovascular: Normal S1-S2, no S3-S4, no murmurs. Respiratory: Lungs clear to auscultation bilaterally Gastrointestinal: Abdomen is soft, nontender Musculoskeletal: There is no pedal edema. Neurological:. Speech is normal. Skin: Skin is warm and dry - Labs CBC & Chem 7: 11/28/20 03:02 11/28/20 03:02 Labs: Abnormal Lab Results - Last 24 Hours (Table) 11/27/20 11/27/20 11/27/20 Range/Units 14:07 18:04 18:52 RBC 5.58 H (3.80-5.40) m/uL Hct 47.5 H (34.0-46.0) % BUN (7-17) mg/dL Glucose (74-99) mg/dL POC Glucose (mg/dL) 140 H (75-99) mg/dL Hemoglobin A1c 6.2 H (4.0-6.0) % Triglycerides (0.0-149.0) mg/dL HDL Cholesterol (40.0-60.0) mg/dL 11/28/20 11/28/20 Range/Units 03:02 03:02 RBC (3.80-5.40) m/uL Hct 46.3 H (34.0-46.0) % BUN 19 H (7-17) mg/dL Glucose 112 H (74-99) mg/dL POC Glucose (mg/dL) (75-99) mg/dL Hemoglobin A1c (4.0-6.0) % Triglycerides 150.0 H (0.0-149.0) mg/dL HDL Cholesterol 39.0 L (40.0-60.0) mg/dL Assessment and Plan Assessment: This is a 60-year-old female with no known past medical history that presented to the emergency room for right-sided body numbness. Patient was evaluated and will be admitted to the hospital for further management of her medical problems noted below 1. Acute CVA involving the left thalamus noted on MRI of the brain with a focus measuring approximately 8.5 mm 2. Hypertensive urgency: Blood pressure improved. Patient was started on Norvasc 5 mg twice daily 3. Hyperlipidemia, LDL 105. Started on Lipitor 40 mg daily 4. Prediabetes, A1c 6.2 Patient was admitted to the ICU. She was seen and evaluated by neurology. She received TPA given worsening NIH score after admission and her being still in th e window. Post TPA, patient had some epistaxis that resolved quickly. CT brain on presentation and CT angiogram of the head and neck with no acute findings. Echocardiogram showed preserved ejection fraction with no evidence of [id number] shunt. Thyroid function tests within normal range. Continue ICU care. Appreciate educational consultant's recommendations. PT/OT/speech pathology evaluation.
[2020-11-28] MEDS: PANTOPRAZOLE 40 MG TABLET PO SCH (19:06)
[2020-11-28] MEDS: ASPIRIN 325 MG TAB PO SCH (19:06)
[2020-11-28] MEDS ORDERED: OXYMETAZOLINE 0.05% NASL SPRAY 1 SPRAY BOTTLE NASAL PRN (20:21)
[2020-11-29 04:24] LABS: HCT 41.7 % (34.0-46.0); HGB 14.3 gm/dL (11.4-16.0); MCH 29.1 pg (25.0-35.0); MCHC 34.2 g/dL (31.0-37.0); Mean Platelet Volume 7.3; Platelet Count 175 k/uL (150-450); RBC 4.91 m/uL (3.80-5.40); RDW 13.8 % (11.5-15.5); WBC 7.6 k/uL (3.8-10.6)
[2020-11-29 04:40] LABS: Calcium 8.8 mg/dL (8.4-10.2); Potassium 3.9 mmol/L (3.5-5.1)
[2020-11-29] MEDS ORDERED: Potassium Replacement Protocol 1 EACH MISC MISCELLANE PRN (04:55)
[2020-11-29] MEDS ORDERED: POTASSIUM CHLORIDE ER 20 MEQ TAB.ER PO SCH (05:00)
[2020-11-29] MEDS: PANTOPRAZOLE 40 MG TABLET PO SCH (06:51)
[2020-11-29 08:26] VITALS: TEMP 97.1
[2020-11-29] MEDS: ATORVASTATIN 40 MG TAB PO SCH (08:56)
[2020-11-29] MEDS: ASPIRIN 325 MG TAB PO SCH (08:56)
[2020-11-29] MEDS: amLODIPine 5 MG TAB PO SCH (08:56)
[2020-11-29 09:33] VITALS: BP 163/79; PULSE 73; RESP 15
--- NOTE | 2020-11-29 11:54 | P.PN ---
Subjective Progress Note Date: 11/29/20 Principal diagnosis: Acute CVA This is a 60-year-old female, no significant past medical history. Patient lives in [place]. Has not been seen by any physician for over a decade. Yesterday around 1:00 PM, patient developed sudden onset of numbness in the right hand foot and the right cheek. She was eating lunch with her family, patient also noticed difficulty with walking and balance. Right foot was felt to be numb. Patient has no headache, no blurred vision, no slurred speech, no facial droop, patient was brought into the ER, blood pressure was noted to be elevated at 189/109. CT of the brain was normal. EKG was normal. Chest x-ray was also normal. Most of her labs were unremarkable. Patient was seen by neurology on consultation shortly after her presentation, and the patient was in the ER at the time. Upon examination by neurology, the patient was noted to have increasing deficit with NIH stroke scale of 4. Hence he recommended TPA. Patient received TPA since she was in the window for thrombolytics. And the patient was transferred shortly after to the ICU. Upon arrival to the ICU, patient developed epistaxis requiring ENT consultation and cauterization. Patient also developed minimal vaginal bleeding. Her symptoms are basically about the same, continues to have numbness on the right side, MRI is pending today. Seen by neurology again today, still documenting numbness on the right side, and some ataxia on the right side. But no other findings. Patient was felt to have acute ischemic stroke manifesting with mild right hemiparesis and sensory deficit. Her NIH stroke scale is 2 today. 2-D echo with bubble study is pending. CT angiography of head and neck is negative. Labs today including CBC, basic metabolic profile, are normal. Patient was reevaluated today on 11/29/2020, remains in the ICU, patient is about the same as far as her numbness symptoms on the right side sort of persists. She is on room air, she remains on clevidipine X. MRI was noted, showed a small tiny thalamic infarct. Labs are basically unremarkable today including his CBC and basic metabolic profile. Patient is yet to be seen by neurology today, decision regarding further anticoagulations therapy is to be decided upon by neurology on the case. Patient is only on aspirin at this point. She did receive TPA on this admission. Objective - Vital Signs Vital signs: Vital Signs Temp 97.1 F L 11/29/20 08:00 Pulse 73 11/29/20 09:00 Resp 15 11/29/20 09:00 BP 163/79 11/29/20 09:00 Pulse Ox 97 11/29/20 09:00 Intake & Output 11/28/20 11/29/20 11/29/20 18:59 06:59 18:59 Intake Total 861.167 790 315 Output Total 1000 150 Balance -138.833 640 315 Weight 125.8 kg 123.4 kg Intake: IV 405 300 75 Sodium Chloride 0.9% 1, 405 300 75 000 ml @ 25 mls/hr IV . Q24H [facility] Rx#:[id number] Intake, IV Titration 6.167 Amount Clevidipine Butyrate 25 6.167 mg In Empty Bag 1 bag @ 1 MG/HR 2 mls/hr IV .Q24H [facility] Rx#:[id number] Oral 450 490 240 Output: Urine 1000 150 Other: Voiding Method Toilet Toilet # Voids 1 0 1 # Bowel Movements 1 1 - Exam Physical Exam: Revealed a 60-year-old female in no distress. Head: Atraumatic, normocephalic. HEENT:[Neck is supple.] [No neck masses.] [No thyromegaly.] [No JVD.] Chest: [Clear throughout, no crackles, no rhonchi, no wheezes.] Cardiac Exam: [Normal S1 and S2, no S3 gallop, no murmur.] Abdomen: [Soft, nontender, no megaly, no rebound, no guarding, normal bowel junior nds.] Extremities: [No clubbing, no edema, no cyanosis.] Psychiatric: Normal mood, affect and normal mental status examination. Neurological Exam: Alert and oriented 3. Face is symmetric. No evidence of facial droop. HEENT: No rashes - Labs CBC & Chem 7: 11/29/20 03:27 11/29/20 03:27 Labs: Abnormal Lab Results - Last 24 Hours (Table) 11/28/20 Range/Units 03:02 Triglycerides 150.0 H (0.0-149.0) mg/dL HDL Cholesterol 39.0 L (40.0-60.0) mg/dL Assessment and Plan Assessment: Impression: Acute CVA, ischemic in nature, status post TPA Hypertensive urgency, patient required placement on clevidipine , presently will start the patient on Norvasc 5 mg twice a day. Post TPA epistaxes, unexpected. Resolved Post TPA vaginal bleeding unexpected, resolved Recommendation: Transfer patient out of the ICU to a monitor bed on selective. Continue Norvasc Continue aspirin. Neurology to decide on further anticoagulations therapy if necessary. We'll sign off for now and see the patient on when necessary basis. Time with Patient: Less than 30
--- NOTE | 2020-11-29 13:31 | P.PN ---
Subjective Progress Note Date: 11/29/20 11/29/2020: Patient is sitting in the recliner. States she is feeling much better. Numbness remains the same, but her gait has improved. Patient states that she made 2 full laps of the ICU floor without any assistive device and felt very steady on her feet. She still has problems with handwriting, and when combing, she was dropping the brush from her right hand. Also some problems with brushing her teeth. no new focal symptoms. 11/28/2020: After patient was seen yesterday, TPA was initiated. Right after the one hour infusion of alteplase completed, patient developed epistaxis. It was profuse bleeding. ENT was consulted, who performed a nasal camp and also cauterized a bleeding vessel in the right nostril. Finally epistaxis resolved. She also developed mild vaginal bleed. Her hemoglobin remained stable. Vitals remained stable. Her blood pressure was controlled with Cleviprex. This was finally discontinued once the epistaxis resolved. Her most recent vitals are blood pressure 179/90, pulse rate 71. Patient continues to have subjective numbness on the right side. Patient believes that she is less sensitive on the right as compared to yesterday. Denies any slurred speech. Still with ataxia on the right. No other symptoms. Patient also has received an aspirin 324 mg in the ER prior to initiation of TPA. Uncertain if epistaxis was from TPA or aspirin. Objective - Vital Signs Vital signs: Vital Signs Temp 97.1 F L 11/29/20 08:00 Pulse 73 11/29/20 09:00 Resp 15 11/29/20 09:00 BP 163/79 11/29/20 09:00 Pulse Ox 97 11/29/20 09:00 Intake & Output 11/28/20 11/29/20 11/29/20 18:59 06:59 18:59 Intake Total 861.167 790 315 Output Total 1000 150 Balance -138.833 640 315 Weight 125.8 kg 123.4 kg Intake: IV 405 300 75 Sodium Chloride 0.9% 1, 405 300 75 000 ml @ 25 mls/hr IV . Q24H [facility] Rx#:[id number] Intake, IV Titration 6.167 Amount Clevidipine Butyrate 25 6.167 mg In Empty Bag 1 bag @ 1 MG/HR 2 mls/hr IV .Q24H [facility] Rx#:[id number] Oral 450 490 240 Output: Urine 1000 150 Other: Voiding Method Toilet Toilet # Voids 1 0 1 # Bowel Movements 1 1 - Exam Patient is a late middle aged female, in no acute distress. Patient is sitting in the recliner. Patient is alert awake oriented to time place and person. Speech and language functions are normal. Attention, concentration and fund of knowledge is adequate. On cranial examination, pupils are round and reacting to light, visual raymond are full on confrontation, extraocular muscles are intact with no nystagmus. Face is symmetric, tongue protrudes to the midline. Palatal elevation and sensation normal, hearing and shoulder shrug normal, facial sensation normal. Shoulder shrug normal. On muscle strength testing, there is very minimal right pronation, no drift, much improved as compared to yesterday and the strength is normal in arms and legs distally and proximally. Deep tendon reflexes are 1+ to 2+ and plantar is up on the right. Sensory to touch and temperature is equal with no neglect. She only notices numbness and she scratches her right hand with her left index finger nail. Cerebellar function showed mild to moderate ataxia for [id number] testing only on the right. No dysdiadochokinesia. No ataxia for xmkt-nk-[id number] testing. Tone and bulk of muscles normal. Gait not checked. On general examination, there is no carotid bruit or murmur, S1-S2 audible. Abdomen is soft nontender. Chest is clear. Peripheral pulses are present. No edema. - Labs CBC & Chem 7: 11/29/20 03:27 11/29/20 03:27 Assessment and Plan Assessment: * Acute left thalamic lacunar stroke. * Hypertension, not treated for at least 1+ year. * Obesity * Hyperlipidemia * Prediabetes, A1c 6.2. * Status post epistaxis post TPA, now resolved. * Mild vaginal bleed, post-TPA, resolved Plan: * Patient has received TPA. Her neurological examination appears to have significantly improved, but still has focal deficits. Hopefully her neurodeficits will continue to improve over the next few days to weeks. * Epistaxis has resolved. Appreciate ENT input. * CTA of head revealed diminutive left anterior cerebral artery but no focal stenosis. Clinical significance is not clear. This could be developmental. CTA of the neck is normal. * MRI of the brain confirmed evidence of lacunar stroke involving the left thalamus. * Lipid panel with cholesterol 174, LDL 105, HDL 39, triglycerides 150. Agree with Lipitor 40 mg daily. * Hemoglobin A1c 6.2. Patient will need dietary modification for prediabetes. * 2-D echo showed normal left-ventricular size. Moderate concentric LVH. EF is between 60-65%. Agitated saline documented no interatrial shunt. No PFO. * PT, OT and speech therapy. * Patient has been started on aspirin 325 mg daily (cleared by ENT). She is doing much better as compared to yesterday. We will maintain her on single antiplatelet agent aspirin 325 mg daily (due to being post TPA and bleeding risk with DAP). * Blood pressure is much better controlled. Neurologically clear for discharge. * Recommend follow-up with neurologist in 1-2 weeks. * Discussed with primary physician.
--- NOTE | 2020-11-29 13:55 | P.DS ---
Providers Date of admission: 11/27/20 17:41 Expected date of discharge: 11/29/20 Attending physician: Bimal Timmons Consults: 11/27/20 15:55 Consult Physician Urgent Consulting Provider: Radhames Cabrera Consult Reason/Comments: Numbness Do you want consulting provider notified?: Already Contacted 11/27/20 17:19 Consult Physician Routine Consulting Provider: Neelima Méndez Consult Reason/Comments: ICU care Do you want consulting provider notified?: Already Contacted 11/27/20 18:51 Consult Physician Stat Consulting Provider: Kwadwo Carreon Consult Reason/Comments: profuse nose bleed s/p tpa Do you want consulting provider notified?: Yes Primary care physician: Stated None Hospital Course: This is a 60-year-old female with no known past medical history that presented to the emergency room for right-sided body numbness. Patient was evaluated and will be admitted to the hospital for further management of her medical problems noted below 1. Acute CVA involving the left thalamus noted on MRI of the brain with a focus measuring approximately 8.5 mm. Started on full dose aspirin daily. 2. Hypertensive urgency: Blood pressure improved. Patient was started on Norvasc 5 mg twice daily and lisinopril 10 mg daily 3. Hyperlipidemia, LDL 105. Started on Lipitor 40 mg daily 4. Prediabetes, A1c 6.2: Counseled regarding lifestyle modification and exercise. Repeat A1c in the next 3-4 months. Patient was admitted to the ICU. She was seen and evaluated by neurology. She received TPA given worsening NIH score after admission and her being still in the window. Post TPA, patient had some epistaxis that resolved quickly. CT brain on presentation and CT angiogram of the head and neck with no acute findings. Echocardiogram showed preserved ejection fraction with no evidence of [id number] shunt. Thyroid function tests within normal range. Continue ICU care. Appreciate eligibility consultant's recommendations. PT/OT/speech pathology evaluation. Patient was seen, evaluated, and examined by me on the day of discharge. She is still having numbness in the right side of her body that is better compared to yesterday. Lungs are clear to auscultation bilaterally. She was counseled and updated about current clinical condition. She was advised to follow-up with her primary care physician as directed. He'll be discharged home in a stable condition. Patient Condition at Discharge: Stable Plan - Discharge Summary Discharge Rx Participant: No New Discharge Prescriptions: New Aspirin 325 mg PO DAILY #30 tab lisinopriL [Zestril] 10 mg PO DAILY #30 tab Atorvastatin [Lipitor] 40 mg PO DAILY #30 tab amLODIPine [Norvasc] 5 mg PO BID #60 tab Discontinued Loratadine [Claritin] 10 mg PO DAILY Discharge Medication List Aspirin 325 mg PO DAILY #30 tab 11/29/20 [Rx] Atorvastatin [Lipitor] 40 mg PO DAILY #30 tab 11/29/20 [Rx] amLODIPine [Norvasc] 5 mg PO BID #60 tab 11/29/20 [Rx] lisinopriL [Zestril] 10 mg PO DAILY #30 tab 11/29/20 [Rx] Follow up Appointment(s)/Referral(s): None,Stated [Primary Care Provider] - 1-2 days Discharge Disposition: HOME SELF-CARE
[2020-11-29] MEDS ORDERED: lisinopriL 10 MG TAB PO SCH (14:00)
== END 2020-11-29 14:47 | disposition home or self-care (01) | DRG 62 ==
LOC: EC 13:48 → 6NMEDSUR 16:12 → 2SICU 17:21 → OBSVTOIN 17:41
PROVIDERS: ADMIT Internal Medicine; ATTEND Internal Medicine
PROC: 3E03317 Introduction of Other Thrombolytic into Peripheral Vein, Percutaneous Approach (ICD-10-PCS; principal; 2020-11-27)
PROC: 093K7ZZ Control Bleeding in Nasal Mucosa and Soft Tissue, Via Natural or Artificial Opening (ICD-10-PCS; 2020-11-27)
DX: I63.81 Other cerebral infarction due to occlusion or stenosis of small artery (principal); G81.91 Hemiplegia, unspecified affecting right dominant side; Z68.41 Body mass index [BMI] 40.0-44.9, adult; I67.89 Other cerebrovascular disease; R29.701 NIHSS score 1; R27.0 Ataxia, unspecified; I16.0 Hypertensive urgency; I10 Essential (primary) hypertension; E66.9 Obesity, unspecified; R04.0 Epistaxis; N93.9 Abnormal uterine and vaginal bleeding, unspecified; T45.615A Adverse effect of thrombolytic drugs, initial encounter; E78.5 Hyperlipidemia, unspecified; R73.03 Prediabetes; Z79.899 Other long term (current) drug therapy; Z87.81 Personal history of (healed) traumatic fracture; Z71.3 Dietary counseling and surveillance; Z80.3 Family history of malignant neoplasm of breast; Z80.8 Family history of malignant neoplasm of other organs or systems; Z82.49 Family history of ischemic heart disease and other diseases of the circulatory system
CPT/HCPCS: 36415; 37195; 70450; 70496; 70498; 70551; 71046; 80048; 80053; 80061; 83036; 84443; 85025; 85027; 85610; 85730; 93005; 93306; 96374; 99285